=== PATIENT | female | born 1985 | race African-American/Black ===

== ENCOUNTER 2017-12-23 16:08 | Emergency (ER) | payer OTHER ==
[~2017-12-23] VITALS: Ht 170.2 cm; Wt 52.1 kg
[~2017-12-23 16:08] MED LIST: BACTRIM,SEPT1 TABLET PO; BUDEPRION XL150 MG PO; DAILY MULTIPLE1 EACH PO; DAILY VALUE1 EACH PO; DEPO-PROVER150 MG/ML IM; ENDOCET 5-3251 EACH PO; IBUPROFEN800 MG PO; KEFLEX250 MG PO; MOTRIN800 MG PO; NORCO 5/3251 TABLET PO; PERCOCET 5/31 TABLET PO; SENNA8.6 MG PO; SEROQUEL300 MG PO; SUBOXONE 8 MG-1 EAC2 SL; VYVANSE50 MG PO; WELLBUTRIN XL300 MG PO; WELLBUTRIN100 MG PO; XANAX1 MG PO; ZOFRAN4 MG PO; [UNRECOGNIZED DRUG - OTHER]
[2017-12-23 17:37] LABS: HEMATOCRIT 39.1 % (36.0-46.0); HEMOGLOBIN 13.2 G/DL (11.9-15.5); MCH 31.1 PG (29.0-34.0); MCHC 33.8 G/DL (30.0-36.0); PLATELET COUNT 247 K/uL (156-360); RBC DIS.WIDTH-CV 11.8 % (11.8-14.6); RBC DIS.WIDTH-SD 39.6 % (39-53); RED BLOOD COUNT 4.25 M/uL (3.80-5.20); WHITE BLOOD COUNT 15.6 K/uL (4.1-10.2)
[2017-12-23 17:50] LABS: CHLORIDE 104 mEq/L (99-109); POTASSIUM 4.3 mEq/L (3.7-5.4); SODIUM 140 mEq/L (136-147)
[2017-12-23 17:52] LABS: GLUCOSE 80 mg/dL (70-99)
[2017-12-23 17:56] LABS: CREATININE 0.8 mg/dL (0.6-1.3); GFR ESTIMATE (CALCULATED) > 59 mL/min/
[2017-12-23 17:57] LABS: UREA NITROGEN (BUN) 16 mg/dL (9-23)
[2017-12-23 19:07] LABS: QUANTITATIVE HCG < 4.0 MIU/ML
[2017-12-23] MEDS ORDERED: KEFLEX500 MG PO (21:12)
[2017-12-23] MEDS ORDERED: BACTRIM,SEPT1 TABLET PO (21:12)
[2017-12-23 21:39] VITALS: BP 116/85
== END 2017-12-23 21:39 | disposition home or self-care (01) ==
LOC: EXP 16:08 → EME 16:08 → EXP 21:39
PROVIDERS: Nurse Practitioner Family
PROC: 0H94XZZ Drainage of Neck Skin, External Approach (ICD-10-PCS; principal; 2017-12-23)
DX: L02.11 Cutaneous abscess of neck (principal); D72.829 Elevated white blood cell count, unspecified; F17.200 Nicotine dependence, unspecified, uncomplicated
CPT/HCPCS: 70491; 80048; 84702; 85027; 87070; 87077; 87147; 87205; 99281; 99285; J1885; J7120